=== PATIENT | male | born 1930 | race Caucasian/White ===

== ENCOUNTER 2016-07-07 18:33 | Inpatient (IN) | payer MEDICARE ==
[~2016-07-07] VITALS: Ht 167.6 cm; Wt 66.7 kg
[2016-07-07] MEDS ORDERED: OLANZAPINE 10 MG VIAL IM ONE ×4 (19:15→20:00)
[2016-07-07] MEDS ORDERED: LORAZEPAM 2 MG/1 ML VIAL IM ONE ×2 (19:15→20:45)
[2016-07-07] MEDS ORDERED: LORAZEPAM 2 MG/1 ML VIAL ONE ×2 (19:18→20:52)
[2016-07-07 19:51] LABS: ACETAMINOPHEN < 2.0 ug/mL (10-30)
[2016-07-07] MEDS ORDERED: TAMS0.4C34 PO (19:56)
[2016-07-07] MEDS ORDERED: AMLO5TAB4 PO (19:56)
[2016-07-07] MEDS ORDERED: DOCU250C75 PO (19:56)
[2016-07-07] MEDS ORDERED: DIVA125T3 PO (19:56)
[2016-07-07] MEDS ORDERED: GABA-534 PO (19:56)
[2016-07-07] MEDS ORDERED: ATOR10TA PO (19:56)
[2016-07-07] MEDS ORDERED: FINA5TAB11 PO (19:56)
[2016-07-07] MEDS ORDERED: ZOLP5TAB7 PO (19:56)
[2016-07-07] MEDS ORDERED: POLY17PO3 PO (19:56)
[2016-07-07 19:59] LABS: ETHANOL < 3 MG/DL (0-0)
[2016-07-07] MEDS ORDERED: diphenhydrAMINE 50 MG/1 ML VIAL IM ONE (20:45)
[2016-07-07] MEDS ORDERED: diphenhydrAMINE 50 MG/1 ML VIAL ONE (20:51)
[2016-07-07] MEDS ORDERED: MAGNESIUM HYDROXIDE 30 ML LIQUID UDC PO PRN (23:00)
[2016-07-07] MEDS ORDERED: MAG HYDROX/AL HYDROX/SIMETH 30 ML LIQUID UDC PO PRN (23:00)
[2016-07-07] MEDS ORDERED: MIRALAX 17 GM POWD.PACK PO PRN (23:00)
[2016-07-07 23:54] VITALS: BP 133/76
[2016-07-08] MEDS: ZOLPIDEM 5 MG TABLET PO PRN (00:24)
[2016-07-08] MEDS ORDERED: ZOLPIDEM 5 MG TABLET ONE (00:31)
[2016-07-08 07:30] VITALS: BP 162/81
[2016-07-08 07:59] LABS: BASOPHILS % (AUTO) 0.3 % (0.0-2.0); EOSINOPHILS % (AUTO) 0.2 % (0.0-7.0); HEMATOCRIT 37.4 % (40.0-50.0); HEMOGLOBIN 11.8 g/dL (14.0-18.0); MEAN CORPUSCULAR HEMOGLOBIN 20.6 uug (27.0-31.0); MEAN CORPUSCULAR HGB CONC 32 g/dL (32.0-37.0); MONOCYTES # (AUTO) 1.3 K/uL (0.1-1.30); MONOCYTES % (AUTO) 8.7 % (0.0-11.0); NEUTROPHILS # (AUTO) 12.5 K/uL (1.8-8.9); NEUTROPHILS % (AUTO) 83.8 % (38.5-71.5); PLATELET COUNT (AUTO) 162 K/uL (150-450); RED BLOOD CELL COUNT(AUTO) 5.75 MIL/uL (4.70-6.10); RED CELL DISTRIBUTION WIDTH 14.8 % (11.5-14.5); WHITE BLOOD COUNT (AUTO) 14.8 K/uL (4.0-11.2)
[2016-07-08 08:31] LABS: THYROID STIMULATING HORMONE 3.653 mIU/mL (0.358-3.740)
[2016-07-08] MEDS: LORAZEPAM 1 MG TABLET PO PRN ×2 (08:36→16:40)
[2016-07-08] MEDS: FINASTERIDE 5 MG TABLET PO SCH (08:36)
[2016-07-08] MEDS: AMLODIPINE 5 MG TABLET PO SCH ×2 (08:36→21:00)
[2016-07-08] MEDS: DOCUSATE SODIUM 250 MG CAPSULE PO SCH ×2 (08:37→16:40)
[2016-07-08] MEDS: ACETAMINOPHEN 325 MG TABLET PO PRN ×2 (08:37→16:39)
[2016-07-08 08:43] LABS: BILIRUBIN,TOTAL 1.5 mg/dL (0.2-1.0); CALCIUM 9.2 mg/dL (8.5-10.1); CREATININE 1.5 mg/dL (0.6-1.3); MAGNESIUM 1.9 mg/dL (1.8-2.4); TOTAL PROTEIN, SERUM 7.7 g/dL (6.4-8.2)
[2016-07-08] MEDS ORDERED: GABAPENTIN 300 MG CAPSULE PO SCH (09:00)
[2016-07-08] MEDS: DIVALPROEX SPRINKLE 125 MG CAP.SPRINK PO SCH ×2 (10:15→20:48)
[2016-07-08 15:39] VITALS: BP 120/76
[2016-07-08] MEDS: GABAPENTIN 300 MG CAPSULE PO SCH (16:39)
[2016-07-08] MEDS: QUETIAPINE FUMARATE 25 MG TABLET PO SCH ×2 (16:40→20:47)
[2016-07-08 20:00] VITALS: BP 111/54
[2016-07-08] MEDS: ATORVASTATIN 10 MG TABLET PO SCH (20:48)
[2016-07-08] MEDS: TAMSULOSIN HCL 0.4 MG CAP.SR.24H PO SCH (20:48)
[2016-07-09] MEDS: LORAZEPAM 1 MG TABLET PO PRN ×2 (04:12→16:50)
[2016-07-09 06:58] LABS: BASOPHILS % (AUTO) 0.2 % (0.0-2.0); EOSINOPHILS # (AUTO) 0.1 K/uL (0.0-0.7); EOSINOPHILS % (AUTO) 1.2 % (0.0-7.0); HEMOGLOBIN 11.5 g/dL (14.0-18.0); LYMPHOCYTES # (AUTO) 1.7 K/uL (0.8-4.8); LYMPHOCYTES % (AUTO) 13.5 % (20.5-51.5); MEAN CORPUSCULAR HEMOGLOBIN 20.1 uug (27.0-31.0); MEAN CORPUSCULAR HGB CONC 31 g/dL (32.0-37.0); MEAN CORPUSCULAR VOLUME 64.8 fL (82.0-92.0); MONOCYTES # (AUTO) 1.8 K/uL (0.1-1.30); MONOCYTES % (AUTO) 14.7 % (0.0-11.0); NEUTROPHILS # (AUTO) 8.8 K/uL (1.8-8.9); NEUTROPHILS % (AUTO) 70.4 % (38.5-71.5); PLATELET COUNT (AUTO) 140 K/uL (150-450); RED BLOOD CELL COUNT(AUTO) 5.72 MIL/uL (4.70-6.10); RED CELL DISTRIBUTION WIDTH 14.9 % (11.5-14.5); WHITE BLOOD COUNT (AUTO) 12.4 K/uL (4.0-11.2)
[2016-07-09 07:12] LABS: ALBUMIN 3.5 g/dL (3.4-5.0); BILIRUBIN,TOTAL 1.9 mg/dL (0.2-1.0); CALCIUM 9.2 mg/dL (8.5-10.1); MAGNESIUM 2.1 mg/dL (1.8-2.4); PHOSPHOROUS 4.9 mg/dL (2.5-4.9); POTASSIUM 3.9 mmol/L (3.5-5.1); TOTAL PROTEIN, SERUM 7.3 g/dL (6.4-8.2)
[2016-07-09 07:30] VITALS: BP 135/63
[2016-07-09] MEDS: GABAPENTIN 300 MG CAPSULE PO SCH ×2 (08:13→16:47)
[2016-07-09] MEDS: FINASTERIDE 5 MG TABLET PO SCH (08:14)
[2016-07-09] MEDS: QUETIAPINE FUMARATE 25 MG TABLET PO SCH ×4 (08:14→23:00)
[2016-07-09] MEDS: DIVALPROEX SPRINKLE 125 MG CAP.SPRINK PO SCH ×3 (08:14→23:00)
[2016-07-09] MEDS: DOCUSATE SODIUM 250 MG CAPSULE PO SCH ×2 (08:14→16:47)
[2016-07-09] MEDS: ACETAMINOPHEN 325 MG TABLET PO PRN ×2 (08:16→16:50)
[2016-07-09] MEDS: Z GUARD REMEDY PASTE 57 GM TUBE TOP PRN ×2 (08:55→16:50)
[2016-07-09] MEDS: AMLODIPINE 5 MG TABLET PO SCH ×3 (09:49→23:00)
[2016-07-09 10:33] LABS: EOSINOPHILS % (MANUAL) 1 % (0-8); HYPOCHROMASIA 2+; LYMPHOCYTES % (MANUAL) 10 % (20-40); MONOCYTES % (MANUAL) 11 % (2-10); NEUTROPHILS % (MANUAL) 78 % (42-75); PLATELET ESTIMATE ADEQUATE
[2016-07-09 10:34] LABS: OVALOCYTES 1+; TARGET CELLS 1+
[2016-07-09 16:00] VITALS: BP 105/74
[2016-07-09 20:04] VITALS: BP 115/63
[2016-07-09] MEDS: ATORVASTATIN 10 MG TABLET PO SCH ×2 (21:00→23:00)
[2016-07-09] MEDS: TAMSULOSIN HCL 0.4 MG CAP.SR.24H PO SCH ×2 (21:00→23:00)
[2016-07-10 07:30] VITALS: BP 123/76
[2016-07-10] MEDS: FINASTERIDE 5 MG TABLET PO SCH (09:58)
[2016-07-10] MEDS: GABAPENTIN 300 MG CAPSULE PO SCH (09:58)
[2016-07-10] MEDS: DOCUSATE SODIUM 250 MG CAPSULE PO SCH ×2 (09:58→17:14)
[2016-07-10] MEDS: QUETIAPINE FUMARATE 25 MG TABLET PO SCH ×3 (09:59→21:01)
[2016-07-10] MEDS: DIVALPROEX SPRINKLE 125 MG CAP.SPRINK PO SCH ×2 (09:59→21:01)
[2016-07-10] MEDS: AMLODIPINE 5 MG TABLET PO SCH ×2 (09:59→21:02)
[2016-07-10 16:00] VITALS: BP 126/71
[2016-07-10] MEDS ORDERED: GABAPENTIN 300 MG CAPSULE PO SCH (17:00)
[2016-07-10] MEDS: GABAPENTIN 100 MG CAPSULE PO SCH (17:14)
[2016-07-10] MEDS: LORAZEPAM 1 MG TABLET PO PRN (19:30)
[2016-07-10 20:42] VITALS: BP 128/78
[2016-07-10] MEDS: TAMSULOSIN HCL 0.4 MG CAP.SR.24H PO SCH (21:01)
[2016-07-10] MEDS: ATORVASTATIN 10 MG TABLET PO SCH (21:02)
[2016-07-10] MEDS: ZOLPIDEM 5 MG TABLET PO PRN (23:36)
[2016-07-11 07:30] VITALS: BP 121/65
[2016-07-11 09:08] VITALS: BP 121/65
[2016-07-11] MEDS: DIVALPROEX SPRINKLE 125 MG CAP.SPRINK PO SCH ×2 (09:32→20:01)
[2016-07-11] MEDS: AMLODIPINE 5 MG TABLET PO SCH ×2 (09:32→20:03)
[2016-07-11] MEDS: DOCUSATE SODIUM 250 MG CAPSULE PO SCH ×2 (09:32→16:15)
[2016-07-11] MEDS: GABAPENTIN 100 MG CAPSULE PO SCH ×2 (09:32→16:13)
[2016-07-11] MEDS: QUETIAPINE FUMARATE 25 MG TABLET PO SCH ×2 (09:33→20:12)
[2016-07-11] MEDS: FINASTERIDE 5 MG TABLET PO SCH (09:33)
[2016-07-11] MEDS: LORAZEPAM 1 MG TABLET PO PRN (12:55)
[2016-07-11 15:40] VITALS: BP 138/74
[2016-07-11] MEDS: ATORVASTATIN 10 MG TABLET PO SCH (20:02)
[2016-07-11] MEDS: TAMSULOSIN HCL 0.4 MG CAP.SR.24H PO SCH (20:02)
[2016-07-11 20:29] VITALS: BP 129/75
[2016-07-12] MEDS: ZOLPIDEM 5 MG TABLET PO PRN (00:43)
[2016-07-12] MEDS: ACETAMINOPHEN 325 MG TABLET PO PRN (00:43)
[2016-07-12] MEDS ORDERED: GUAIFENESIN/DEXTROMETHORPHAN 5 ML UDC PO PRN (01:30)
[2016-07-12 07:30] VITALS: BP 145/69
[2016-07-12] MEDS: DOCUSATE SODIUM 250 MG CAPSULE PO SCH (09:52)
[2016-07-12] MEDS: FINASTERIDE 5 MG TABLET PO SCH (09:52)
[2016-07-12] MEDS: GABAPENTIN 100 MG CAPSULE PO SCH ×2 (09:52→17:13)
[2016-07-12] MEDS: DIVALPROEX SPRINKLE 125 MG CAP.SPRINK PO SCH ×2 (09:52→20:38)
[2016-07-12] MEDS: AMLODIPINE 5 MG TABLET PO SCH ×2 (09:59→20:39)
[2016-07-12] MEDS: LORAZEPAM 1 MG TABLET PO PRN ×2 (11:17→16:11)
[2016-07-12] MEDS ORDERED: BISACODYL 10 MG SUPP.RECT RC PRN (13:45)
[2016-07-12] MEDS: MIRALAX 17 GM POWD.PACK PO SCH (15:00)
[2016-07-12 15:06] LABS: BASOPHILS # (AUTO) 0.1 K/uL (0.0-0.2); EOSINOPHILS # (AUTO) 0.3 K/uL (0.0-0.7); EOSINOPHILS % (AUTO) 3.4 % (0.0-7.0); HEMOGLOBIN 9.9 g/dL (14.0-18.0); LYMPHOCYTES # (AUTO) 0.9 K/uL (0.8-4.8); LYMPHOCYTES % (AUTO) 11.3 % (20.5-51.5); MEAN CORPUSCULAR HEMOGLOBIN 19.9 uug (27.0-31.0); MEAN CORPUSCULAR HGB CONC 31 g/dL (32.0-37.0); MEAN CORPUSCULAR VOLUME 64.3 fL (82.0-92.0); MONOCYTES # (AUTO) 1.2 K/uL (0.1-1.30); MONOCYTES % (AUTO) 14.4 % (0.0-11.0); NEUTROPHILS # (AUTO) 5.8 K/uL (1.8-8.9); NEUTROPHILS % (AUTO) 69.9 % (38.5-71.5); PLATELET COUNT (AUTO) 131 K/uL (150-450); RED BLOOD CELL COUNT(AUTO) 4.97 MIL/uL (4.70-6.10); RED CELL DISTRIBUTION WIDTH 14.4 % (11.5-14.5); WHITE BLOOD COUNT (AUTO) 8.3 K/uL (4.0-11.2)
[2016-07-12] MEDS ORDERED: FLEET ENEMA 133 ML BOTTLE RC PRN (15:15)
[2016-07-12 15:16] VITALS: BP 153/72
[2016-07-12 15:16] LABS: MAGNESIUM 2.4 mg/dL (1.8-2.4); PHOSPHOROUS 6.5 mg/dL (2.5-4.9)
[2016-07-12 15:43] LABS: NEUTROPHILS % (MANUAL) 60 % (42-75)
[2016-07-12 15:44] LABS: ANISOCYTOSIS 1+; EOSINOPHILS % (MANUAL) 4 % (0-8); HYPOCHROMASIA 1+; LYMPHOCYTES % (MANUAL) 15 % (20-40); MONOCYTES % (MANUAL) 21 % (2-10); PLATELET ESTIMATE DECREASED
[2016-07-12 15:45] LABS: TARGET CELLS FEW; TEAR DROP CELLS FEW
[2016-07-12] MEDS: QUETIAPINE FUMARATE 25 MG TABLET PO SCH ×2 (17:13→20:38)
[2016-07-12 18:06] LABS: *BILIRUBIN,URIN NEGATIVE (NEGATIVE); *BLOOD, URINE 3+ (NEGATIVE); *CLARITY,URINE SLIGHTLY CLOUDY (CLEAR); *COLOR,URINE YELLOW (YELLOW); *CREATININE,URINE 151.3 mg/dL (30-125); *KETONES,URINE NEGATIVE (NEGATIVE); *PROTEIN,URINE NEGATIVE (NEGATIVE); *URINE TOTAL PROTEIN RANDOM 15.8 mg/dL (<150/24HR); *UROBILINOGEN,URINE 0.2 E.U./dl (NORMAL); LEUKOCYTE ESTERASE ,URINE NEGATIVE (NEGATIVE); NITRITE, URINE NEGATIVE (NEGATIVE); PH,URINE 5.5 (5.0-8.0); UGLUCOSE NEGATIVE (NEGATIVE)
[2016-07-12 18:21] LABS: BACTERIA,URINE NONE SEEN /HPF (NONE SEEN); RBC,URINE 80-100 /HPF (0-3); SQUAMOUS EPITHELIAL CELL,UR NONE SEEN /HPF (NONE SEEN); WBC,URINE 0-3 /HPF (0-3)
[2016-07-12 18:52] LABS: *OCCULT BLOOD STOOL NEGATIVE (NEGATIVE)
[2016-07-12 20:34] VITALS: BP 171/78
[2016-07-12] MEDS: ATORVASTATIN 10 MG TABLET PO SCH (20:38)
[2016-07-12] MEDS: TAMSULOSIN HCL 0.4 MG CAP.SR.24H PO SCH (20:39)
[2016-07-12] MEDS ORDERED: DOCUSATE SODIUM 100 MG CAPSULE PO SCH (21:00)
[2016-07-13 08:11] LABS: ALBUMIN 3.1 g/dL (3.4-5.0); BILIRUBIN,TOTAL 0.8 mg/dL (0.2-1.0); CALCIUM 8.4 mg/dL (8.5-10.1); MAGNESIUM 2.3 mg/dL (1.8-2.4); PHOSPHOROUS 7.7 mg/dL (2.5-4.9); POTASSIUM 4.3 mmol/L (3.5-5.1); TOTAL PROTEIN, SERUM 7.3 g/dL (6.4-8.2)
[2016-07-13 08:12] LABS: BASOPHILS % (AUTO) 0.2 % (0.0-2.0); CREATININE 4.5 mg/dL (0.6-1.3); EOSINOPHILS # (AUTO) 0.2 K/uL (0.0-0.7); EOSINOPHILS % (AUTO) 1.7 % (0.0-7.0); HEMATOCRIT 32.3 % (40.0-50.0); HEMOGLOBIN 9.9 g/dL (14.0-18.0); LYMPHOCYTES # (AUTO) 1.2 K/uL (0.8-4.8); LYMPHOCYTES % (AUTO) 10.8 % (20.5-51.5); MEAN CORPUSCULAR HGB CONC 31 g/dL (32.0-37.0); MONOCYTES # (AUTO) 1.9 K/uL (0.1-1.30); MONOCYTES % (AUTO) 16.8 % (0.0-11.0); NEUTROPHILS # (AUTO) 7.7 K/uL (1.8-8.9); NEUTROPHILS % (AUTO) 70.5 % (38.5-71.5); PLATELET COUNT (AUTO) 130 K/uL (150-450); RED BLOOD CELL COUNT(AUTO) 4.97 MIL/uL (4.70-6.10)
[2016-07-13] MEDS: DIVALPROEX SPRINKLE 125 MG CAP.SPRINK PO SCH (09:11)
[2016-07-13] MEDS: QUETIAPINE FUMARATE 25 MG TABLET PO SCH (09:11)
[2016-07-13] MEDS: FINASTERIDE 5 MG TABLET PO SCH (09:11)
[2016-07-13] MEDS: GABAPENTIN 100 MG CAPSULE PO SCH (09:11)
[2016-07-13] MEDS: AMLODIPINE 5 MG TABLET PO SCH (09:11)
[2016-07-13] MEDS: MIRALAX 17 GM POWD.PACK PO SCH (09:11)
[2016-07-13] MEDS ORDERED: IV D5 1/2 NS 1000 ML 1,000 ML IV PRN (10:00)
[2016-07-13 10:53] VITALS: BP 129/75
[2016-07-13 13:15] LABS: BAND % (MANUAL) 6 % (0-10); EOSINOPHILS % (MANUAL) 3 % (0-8); LYMPHOCYTES % (MANUAL) 14 % (20-40); NEUTROPHILS % (MANUAL) 61 % (42-75)
[2016-07-13 13:16] LABS: MONOCYTES % (MANUAL) 16 % (2-10); PLATELET ESTIMATE DECREASED
[2016-07-13 13:18] LABS: ANISOCYTOSIS 1+; HYPOCHROMASIA 3+; TARGET CELLS 11; TEAR DROP CELLS 1+
[2016-07-13] MEDS ORDERED: FERROUS SULFATE 325 MG TABEC PO SCH (13:45)
[2016-07-13] MEDS ORDERED: FERROUS SULFATE 300 MG/5 ML LIQUID UDC PO SCH ×2 (14:30→14:41)
[2016-07-13] MEDS: ACETAMINOPHEN 325 MG TABLET PO PRN (15:22)
[2016-07-13] MEDS: LORAZEPAM 1 MG TABLET PO PRN (15:22)
[2016-07-13 15:47] VITALS: BP 100/63
[2016-07-13] MEDS ORDERED: FERR325T28 PO (17:34)
[2016-07-13] MEDS ORDERED: GUAI480S10 PO (17:34)
[2016-07-13] MEDS ORDERED: LORA-259 PO (17:35)
[2016-07-13] MEDS ORDERED: MAG355OR18 PO (17:37)
[2016-07-13] MEDS ORDERED: QUET100T PO (17:39)
[2016-07-13] MEDS ORDERED: QUET25TA PO (17:40)
[2016-07-13] MEDS ORDERED: BISA10SU61 RC (17:49)
[2016-07-13] MEDS ORDERED: ZINC113P2 TP (17:49)
[2016-07-15 06:06] LABS: A/G RATIO 1.3 (0.7-1.7); ALBUMIN 3.8 g/dL (2.9-4.4); ALPHA-1-GLOBULIN 0.3 g/dL (0.0-0.4); ALPHA-2-GLOBULIN 0.7 g/dL (0.4-1.0); BETA GLOBULIN 0.8 g/dL (0.7-1.3); GAMMA GLOBULIN 1.3 g/dL (0.4-1.8); M-SPIKE Not Observed g/dL (Not Observed)
[2016-07-15 13:43] LABS: PTH, INTACT 47 pg/mL (15-65)
== END 2016-07-13 15:30 | disposition short-term general hospital (02) | DRG 885 ==
LOC: ER 18:33 → GPS 22:44 → MED 07-13 16:08 → GPS 07-13 16:08
PROVIDERS: ADMIT Psychiatry & Neurology Psychiatry; ATTEND Nurse Practitioner Acute Care
DX: F29 Unspecified psychosis not due to a substance or known physiological condition (principal); F02.81 Dementia in other diseases classified elsewhere, unspecified severity, with behavioral disturbance; N17.0 Acute kidney failure with tubular necrosis; D68.59 Other primary thrombophilia; E87.0 Hyperosmolality and hypernatremia; G30.9 Alzheimer's disease, unspecified; E78.00 Pure hypercholesterolemia, unspecified; D50.9 Iron deficiency anemia, unspecified; E78.5 Hyperlipidemia, unspecified; E86.0 Dehydration; D69.6 Thrombocytopenia, unspecified; K59.00 Constipation, unspecified; E80.6 Other disorders of bilirubin metabolism; I10 Essential (primary) hypertension; D72.829 Elevated white blood cell count, unspecified; N40.0 Benign prostatic hyperplasia without lower urinary tract symptoms; E11.9 Type 2 diabetes mellitus without complications; R33.8 Other retention of urine; R14.0 Abdominal distension (gaseous); R93.5 Abnormal findings on diagnostic imaging of other abdominal regions, including retroperitoneum; N13.9 Obstructive and reflux uropathy, unspecified; R31.9 Hematuria, unspecified
CPT/HCPCS: 36415; 70450; 71010; 74000; 76770; 80164; 82378; 83550; 83735; 83970; 84100; 84153; 84155; 84156; 84165; 84300; 84443; 85025; 97001; 97110; 97530; A4663; G0480-TC; G6040-TC; J1200; J2060; J2358; J3490

== ENCOUNTER 2016-07-13 16:23 | Inpatient (IN) | payer MEDICARE ==
[~2016-07-13] VITALS: Ht 167.6 cm; Wt 66.7 kg
[2016-07-13 15:00] VITALS: BP 139/67
[~2016-07-13 16:23] MED LIST: AMLO5TAB4 PO; ATOR10TA PO; DIVA125T3 PO; DOCU250C75 PO; FINA5TAB11 PO; GABA-534 PO; POLY17PO3 PO; TAMS0.4C34 PO; ZOLP5TAB7 PO
[2016-07-13] MEDS ORDERED: GUAI480S10 PO (17:34)
[2016-07-13] MEDS ORDERED: FERR325T28 PO (17:34)
[2016-07-13] MEDS ORDERED: LORA-259 PO (17:35)
[2016-07-13] MEDS ORDERED: MAG355OR18 PO (17:37)
[2016-07-13] MEDS ORDERED: QUET100T PO (17:39)
[2016-07-13] MEDS ORDERED: QUET25TA PO (17:40)
[2016-07-13] MEDS ORDERED: BISA10SU61 RC (17:49)
[2016-07-13] MEDS ORDERED: ZINC113P2 TP (17:49)
--- NOTE | 2016-07-13 18:00 | NUR ---
Entered home medications for Jazz to reconcile meds. Pt is in no acute distress. Noted Bruising on right elbow, left and right hand bruising, right spencer scabs, and Left knee scabs. Pt very combative and attempting to pull out f/c and IV on right hand, Pt attempting to get oob. Decreased environmental stimulit and attempt to distract pt both not effective. Pt wont take anything by mouth during feeds. Awaiting for jazz to change ativan to IV. Call light is within reach.
[2016-07-13] MEDS: IV D5 1/2 NS 1000 ML 1,000 ML IV PRN (18:45)
[2016-07-13] MEDS: LORAZEPAM 2 MG/1 ML VIAL IV PRN (18:45)
[2016-07-13 18:57] LABS: *BILIRUBIN,URIN NEGATIVE (NEGATIVE); *BLOOD, URINE 3+ (NEGATIVE); *CLARITY,URINE CLOUDY (CLEAR); *COLOR,URINE RED (YELLOW); *KETONES,URINE TRACE (NEGATIVE); *PROTEIN,URINE 2+ (NEGATIVE); NITRITE, URINE NEGATIVE (NEGATIVE); PH,URINE 6.5 (5.0-8.0); UGLUCOSE NEGATIVE (NEGATIVE)
[2016-07-13 18:58] LABS: LEUKOCYTE ESTERASE ,URINE TRACE (NEGATIVE)
[2016-07-13 19:15] LABS: RBC,URINE TNTC /HPF (0-3)
[2016-07-13 19:16] LABS: BACTERIA,URINE NONE SEEN /HPF (NONE SEEN); SQUAMOUS EPITHELIAL CELL,UR NONE SEEN /HPF (NONE SEEN)
--- NOTE | 2016-07-13 19:30 | NUR ---
received pt in bed sleeping, easily awaken. in no acute distress. 1:1 sitter at bedside for safety. brambila intact and patent draining pink-red urine. iv intact ivf infusing as ordered. safety measures are in place. will continue to monitor.
[2016-07-13 20:00] VITALS: BP 128/68
[2016-07-13] MEDS ORDERED: MAG HYDROX/AL HYDROX/SIMETH 30 ML LIQUID UDC PO PRN (21:00)
[2016-07-13] MEDS ORDERED: GUAIFENESIN/DEXTROMETHORPHAN 5 ML UDC PO PRN (21:00)
[2016-07-13] MEDS ORDERED: ZOLPIDEM 5 MG TABLET PO PRN (21:00)
[2016-07-13] MEDS ORDERED: QUETIAPINE FUMARATE 25 MG TABLET ONE (21:11)
[2016-07-13] MEDS ORDERED: ATORVASTATIN 10 MG TABLET ONE (21:12)
[2016-07-13] MEDS: ATORVASTATIN 10 MG TABLET PO SCH (21:21)
[2016-07-13] MEDS: QUETIAPINE FUMARATE 100 MG TABLET PO SCH (21:26)
[2016-07-13] MEDS ORDERED: QUETIAPINE FUMARATE 100 MG TABLET ONE (21:33)
[2016-07-14] MEDS: LORAZEPAM 2 MG/1 ML VIAL IV PRN ×3 (03:08→18:04)
--- NOTE | 2016-07-14 03:21 | NUR ---
pt noted to be anxious restless and combative, pulling out brambila catheter and trying to get oob. reoriented and attempted to distract pt. prn medication given as ordered. will continue to monitor.
[2016-07-14 04:00] VITALS: BP 131/66
--- NOTE | 2016-07-14 06:00 | NUR ---
1:1 sitter at bedside at all times for safety. brambila remains intact and patent hematuria noted. resting comfortably in bed in no acute distress.
[2016-07-14] MEDS: IV D5 1/2 NS 1000 ML 1,000 ML IV PRN ×2 (06:03→20:49)
[2016-07-14 06:47] LABS: ALBUMIN 3.1 g/dL (3.4-5.0); BILIRUBIN,TOTAL 0.8 mg/dL (0.2-1.0); CALCIUM 8.5 mg/dL (8.5-10.1); MAGNESIUM 2.1 mg/dL (1.8-2.4); PHOSPHOROUS 3.4 mg/dL (2.5-4.9); POTASSIUM 4.3 mmol/L (3.5-5.1); TOTAL PROTEIN, SERUM 7.5 g/dL (6.4-8.2)
[2016-07-14 06:48] LABS: BASOPHILS % (AUTO) 0.5 % (0.0-2.0); EOSINOPHILS # (AUTO) 0.3 K/uL (0.0-0.7); EOSINOPHILS % (AUTO) 2.8 % (0.0-7.0); HEMATOCRIT 30.6 % (40.0-50.0); HEMOGLOBIN 9.7 g/dL (14.0-18.0); LYMPHOCYTES % (AUTO) 10.1 % (20.5-51.5); MEAN CORPUSCULAR HEMOGLOBIN 20.5 uug (27.0-31.0); MEAN CORPUSCULAR HGB CONC 32 g/dL (32.0-37.0); MEAN CORPUSCULAR VOLUME 64.7 fL (82.0-92.0); MONOCYTES # (AUTO) 1.5 K/uL (0.1-1.30); MONOCYTES % (AUTO) 15.2 % (0.0-11.0); NEUTROPHILS # (AUTO) 6.9 K/uL (1.8-8.9); NEUTROPHILS % (AUTO) 71.4 % (38.5-71.5); PLATELET COUNT (AUTO) 143 K/uL (150-450); RED BLOOD CELL COUNT(AUTO) 4.73 MIL/uL (4.70-6.10); RED CELL DISTRIBUTION WIDTH 14.2 % (11.5-14.5); WHITE BLOOD COUNT (AUTO) 9.8 K/uL (4.0-11.2)
[2016-07-14 06:51] LABS: CREATININE 1.9 mg/dL (0.6-1.3)
[2016-07-14] MEDS: FERROUS SULFATE 300 MG/5 ML LIQUID UDC PO SCH (07:54)
[2016-07-14] MEDS: DIVALPROEX 250 MG TABLET.DR PO SCH (07:54)
[2016-07-14] MEDS: QUETIAPINE FUMARATE 25 MG TABLET PO SCH ×2 (07:55→17:38)
[2016-07-14] MEDS: GABAPENTIN 100 MG CAPSULE PO SCH ×2 (07:55→17:39)
[2016-07-14] MEDS: FINASTERIDE 5 MG TABLET PO SCH (07:55)
[2016-07-14] MEDS: AMLODIPINE 5 MG TABLET PO SCH ×2 (07:56→17:38)
[2016-07-14] MEDS: PANTOPRAZOLE SODIUM 40 MG TABLET.DR PO SCH (07:57)
--- NOTE | 2016-07-14 08:00 | NUR ---
PATIENT CONTINUES TO HAVE HEMATURIA. PATIENT HAS SITTER AT BEDSIDE FOR SAFETY TO ENSURE HE DOES NOT PULL OUT IV LINE OR SERRANO CATHETER. PATIENT CONTINUES TO BE CONFUSED. HOWEVER TAKES MEDICATION.
[2016-07-14] MEDS ORDERED: DIVALPROEX 125 MG TABLET.DR PO SCH (09:00)
[2016-07-14] MEDS ORDERED: GABAPENTIN 300 MG CAPSULE PO SCH (09:00)
[2016-07-14 09:58] LABS: BAND % (MANUAL) 2 % (0-10); EOSINOPHILS % (MANUAL) 5 % (0-8); LYMPHOCYTES % (MANUAL) 17 % (20-40); NEUTROPHILS % (MANUAL) 64 % (42-75)
[2016-07-14 10:00] LABS: MONOCYTES % (MANUAL) 12 % (2-10)
[2016-07-14 10:02] LABS: PLATELET ESTIMATE DECREASED
[2016-07-14 10:03] LABS: ANISOCYTOSIS 1+; HYPOCHROMASIA 2+; TARGET CELLS 1+; TEAR DROP CELLS 1+
--- NOTE | 2016-07-14 10:49 | NUR ---
CLINICAL PHARMACY NOTE(REVIEW OF [facility] MEDICATIONS) This is an 85 y/o male originally admitted to the Geropsychiatric unit due to psychosis with aggression/agitation. Has been transfer to the medical floor when blood was found in his urine. Past medical history Alzheimer's dementia hypertension, hypercholesterolemia All medications review as of today several mediations on high risk list. Quetiapine increased risk of cerebrovascular accident (stroke) and greater rate of cognitive decline and mortality in persons with dementia. Zolpidem,Lorazepam, Depakote, and gabapentin all may cause ataxia, impaired psychomotor function syncope, additional fall risk. Lorazepam ordered iv prn agitation. Zolpidem as needed for sleep. Quetiapine,Depakote,and gabapentin were continue from medication reconciliation form Geropsychiatric unit originally ordered by psychiatrist. Original lorazepam order was PO from psychiatrist. Recommendation: Patient dose have quetiapine ordered for bedtime and if effective may be able to discontinue zolpidem. Otherwise due to the patient complex behavioral problems (dementia/psychosis) no other recommendations except for monitoring the patient for side effects such as impaired psychomotor function and ataxia. In addition quetiapine may interact with other medication causing prolongation of QT interval. Will monitor for any changes in medications that may interact with quetiapine.
[2016-07-14 11:50] VITALS: BP 123/66
[2016-07-14 15:54] VITALS: BP 125/56
[2016-07-14 16:09] LABS: THYROID STIMULATING HORMONE 1.93 mIU/mL (0.358-3.740)
--- NOTE | 2016-07-14 19:30 | NUR ---
IV intact, infusing well. Bustamante intact, continues to have hematuria. Will continue to monitor.
--- NOTE | 2016-07-14 19:30 | NUR ---
Received patient sleeping in bed, 1:1 sitter at bedside. No s/s distress noted. Call light within reach. Will continue to monitor.
[2016-07-14 20:00] VITALS: BP 120/68
[2016-07-14] MEDS: TAMSULOSIN HCL 0.4 MG CAP.SR.24H PO SCH (20:44)
[2016-07-14] MEDS: QUETIAPINE FUMARATE 100 MG TABLET PO SCH (20:44)
[2016-07-14] MEDS: ATORVASTATIN 10 MG TABLET PO SCH (20:44)
[2016-07-15] MEDS: LORAZEPAM 2 MG/1 ML VIAL IV PRN ×2 (03:37→11:37)
[2016-07-15 04:00] VITALS: BP 130/60
[2016-07-15] MEDS: PANTOPRAZOLE SODIUM 40 MG TABLET.DR PO SCH (06:18)
--- NOTE | 2016-07-15 06:55 | NUR ---
Patient resting in bed. Kept clean and dry. IV on left hand #20. IVF infusing well. With intermittent periods of agitation. PRN and due meds given. Call light within reach. Frequent checks done, sitter at bedside. Bustamante in place. Will endorse accordingly.
--- NOTE | 2016-07-15 07:12 | NUR ---
Report received from mini shifter. Patient resting in bed, no signs of distress noted at this time. Intermittent signs of agitation, decreased at this time due to prior administration of ativan as ordered. IVF running, no redness or swelling at IV site. Bustamante in place, draining red urine. Call light within reach. Sitter at bedside, will continue to monitor and check frequently. Safety, fall, and aspiration precautions maintained. Four siderails up.
[2016-07-15 07:41] LABS: BASOPHILS % (AUTO) 0.4 % (0.0-2.0); EOSINOPHILS # (AUTO) 0.3 K/uL (0.0-0.7); EOSINOPHILS % (AUTO) 2.6 % (0.0-7.0); HEMATOCRIT 28.4 % (40.0-50.0); HEMOGLOBIN 8.9 g/dL (14.0-18.0); LYMPHOCYTES # (AUTO) 1.3 K/uL (0.8-4.8); LYMPHOCYTES % (AUTO) 13.1 % (20.5-51.5); MEAN CORPUSCULAR HEMOGLOBIN 20.5 uug (27.0-31.0); MEAN CORPUSCULAR HGB CONC 31 g/dL (32.0-37.0); MEAN CORPUSCULAR VOLUME 65.4 fL (82.0-92.0); MONOCYTES # (AUTO) 1.7 K/uL (0.1-1.30); MONOCYTES % (AUTO) 17.7 % (0.0-11.0); NEUTROPHILS # (AUTO) 6.4 K/uL (1.8-8.9); NEUTROPHILS % (AUTO) 66.2 % (38.5-71.5); PLATELET COUNT (AUTO) 166 K/uL (150-450); RED BLOOD CELL COUNT(AUTO) 4.34 MIL/uL (4.70-6.10); RED CELL DISTRIBUTION WIDTH 13.8 % (11.5-14.5); WHITE BLOOD COUNT (AUTO) 9.8 K/uL (4.0-11.2)
[2016-07-15 07:55] LABS: ALBUMIN 2.9 g/dL (3.4-5.0); BILIRUBIN,TOTAL 0.6 mg/dL (0.2-1.0); CREATININE 1.3 mg/dL (0.6-1.3); MAGNESIUM 1.9 mg/dL (1.8-2.4); PHOSPHOROUS 2.3 mg/dL (2.5-4.9); TOTAL PROTEIN, SERUM 7.3 g/dL (6.4-8.2)
[2016-07-15 08:17] LABS: CALCIUM 7.8 mg/dL (8.5-10.1)
[2016-07-15] MEDS: FERROUS SULFATE 300 MG/5 ML LIQUID UDC PO SCH (08:26)
[2016-07-15] MEDS: QUETIAPINE FUMARATE 25 MG TABLET PO SCH ×2 (08:27→17:34)
[2016-07-15] MEDS: AMLODIPINE 5 MG TABLET PO SCH ×2 (08:27→17:34)
[2016-07-15] MEDS: DIVALPROEX 250 MG TABLET.DR PO SCH (08:27)
[2016-07-15] MEDS: GABAPENTIN 100 MG CAPSULE PO SCH ×2 (08:27→17:34)
[2016-07-15 08:29] LABS: EOSINOPHILS % (MANUAL) 4 % (0-8); HYPOCHROMASIA 2+; LYMPHOCYTES % (MANUAL) 12 % (20-40); MONOCYTES % (MANUAL) 17 % (2-10); NEUTROPHILS % (MANUAL) 67 % (42-75); PLATELET ESTIMATE ADEQUATE
[2016-07-15] MEDS: FINASTERIDE 5 MG TABLET PO SCH (09:10)
[2016-07-15 11:19] VITALS: BP 133/83
[2016-07-15] MEDS: IV D5 1/2 NS 1000 ML 1,000 ML IV PRN (11:35)
--- NOTE | 2016-07-15 11:45 | NUR ---
Pt has increased agitation. multiple steps prior to giving ativan not effective. decreased stimuli, distracted pt, pt with sitter at bedside for any needs of pt but pt still agitated pulling on iv pulling on f/c kicking sitter, and spitting on nurses. Ativan given for agitation.
--- NOTE | 2016-07-15 13:00 | NUR ---
f/c irrigated as ordered. and mad very minimal clots taken out. Urine is dark rosales colored. D/c f/c as ordered. emptied 850cc of urine from the f/c. Pt is in no acute distress. Call light is within reach.
--- NOTE | 2016-07-15 14:00 | NUR ---
Ativan minimally effective - pt is more manageable with the sitter at the bedside. Resp 18, b/p 135/69, temp 98.7
[2016-07-15] MEDS ORDERED: SENNOSIDES/DOCUSATE SODIUM TABLET PO PRN (14:45)
[2016-07-15] MEDS ORDERED: NEUTRA PHOS PACKET PO ONE (15:15)
[2016-07-15 15:30] VITALS: BP 136/75
[2016-07-15] MEDS ORDERED: FLEET ENEMA 133 ML BOTTLE RC PRN (15:30)
[2016-07-15] MEDS ORDERED: BISACODYL 10 MG SUPP.RECT RC PRN (15:30)
--- NOTE | 2016-07-15 18:32 | NUR ---
Pt is in no acute distress. Pt had small urine output form the diaper. pt is incontinent. CHECKED urine with bladder scanner resulted 260cc. Dr mckeon notified. Next shift to monitor bladder in urine. No result from suppository for constipation -will notify next shift to try fleets enema. Pt had been restless throughout shift with frequent moving around in bed and minimal sleep and rest. Call light is within reach.
[2016-07-15 20:00] VITALS: BP 145/79
[2016-07-15] MEDS: TAMSULOSIN HCL 0.4 MG CAP.SR.24H PO SCH (20:36)
[2016-07-15] MEDS: QUETIAPINE FUMARATE 100 MG TABLET PO SCH (20:36)
[2016-07-15] MEDS: ATORVASTATIN 10 MG TABLET PO SCH (20:36)
--- NOTE | 2016-07-15 20:55 | NUR ---
Patient noted to have no urine in diaper. Checked with bladder scanner and noted [address] Cueto made aware. Awaiting call back.
--- NOTE | 2016-07-15 21:20 | NUR ---
Dr. Cueto called back with orders to insert brambila if retaining by midnight.
--- NOTE | 2016-07-16 00:10 | NUR ---
No urine noted on diaper. Bladder scan done and noted 628ml retention. Inserted brambila cath as ordered.
[2016-07-16] MEDS: IV D5 1/2 NS 1000 ML 1,000 ML IV PRN (02:19)
[2016-07-16] MEDS: LORAZEPAM 2 MG/1 ML VIAL IV PRN ×2 (03:35→14:37)
[2016-07-16 04:00] VITALS: BP 117/71
[2016-07-16] MEDS: PANTOPRAZOLE SODIUM 40 MG TABLET.DR PO SCH (06:34)
[2016-07-16 06:46] LABS: BASOPHILS % (AUTO) 0.4 % (0.0-2.0); EOSINOPHILS # (AUTO) 0.2 K/uL (0.0-0.7); EOSINOPHILS % (AUTO) 2.3 % (0.0-7.0); HEMOGLOBIN 9.7 g/dL (14.0-18.0); LYMPHOCYTES # (AUTO) 1.1 K/uL (0.8-4.8); LYMPHOCYTES % (AUTO) 11.4 % (20.5-51.5); MEAN CORPUSCULAR HEMOGLOBIN 20.9 uug (27.0-31.0); MEAN CORPUSCULAR HGB CONC 32 g/dL (32.0-37.0); MEAN CORPUSCULAR VOLUME 64.5 fL (82.0-92.0); MONOCYTES # (AUTO) 1.7 K/uL (0.1-1.30); MONOCYTES % (AUTO) 17.4 % (0.0-11.0); NEUTROPHILS % (AUTO) 68.5 % (38.5-71.5); PLATELET COUNT (AUTO) 166 K/uL (150-450); RED BLOOD CELL COUNT(AUTO) 4.65 MIL/uL (4.70-6.10)
--- NOTE | 2016-07-16 06:49 | NUR ---
Patient resting on bed with periods of agitation. Lorazepam given as ordered. Slept for a few hours throughout the night. BM x 4 during the shift. Due meds given. IV intact and patent. IVF infusing well. Bustamante cath patent. Kept clean, dry and comfortable. Needs attended. Endorsed accordingly.
[2016-07-16 07:05] LABS: BILIRUBIN,TOTAL 0.9 mg/dL (0.2-1.0); CALCIUM 8.5 mg/dL (8.5-10.1); CREATININE 1.2 mg/dL (0.6-1.3); MAGNESIUM 1.9 mg/dL (1.8-2.4); PHOSPHOROUS 3.3 mg/dL (2.5-4.9); POTASSIUM 3.8 mmol/L (3.5-5.1); TOTAL PROTEIN, SERUM 7.5 g/dL (6.4-8.2)
[2016-07-16 08:00] VITALS: BP 123/79
[2016-07-16] MEDS: FERROUS SULFATE 300 MG/5 ML LIQUID UDC PO SCH (08:09)
[2016-07-16] MEDS: QUETIAPINE FUMARATE 25 MG TABLET PO SCH ×2 (08:10→16:02)
[2016-07-16] MEDS: GABAPENTIN 100 MG CAPSULE PO SCH ×2 (08:10→16:02)
[2016-07-16] MEDS: DIVALPROEX 250 MG TABLET.DR PO SCH (08:10)
[2016-07-16] MEDS: AMLODIPINE 5 MG TABLET PO SCH ×2 (08:14→16:03)
[2016-07-16] MEDS: FINASTERIDE 5 MG TABLET PO SCH (08:14)
[2016-07-16 11:09] VITALS: BP 125/73
[2016-07-16 11:11] VITALS: BP 125/73
[2016-07-16 11:35] LABS: BAND % (MANUAL) 4 % (0-10); EOSINOPHILS % (MANUAL) 4 % (0-8); LYMPHOCYTES % (MANUAL) 11 % (20-40); MONOCYTES % (MANUAL) 18 % (2-10); NEUTROPHILS % (MANUAL) 63 % (42-75)
[2016-07-16 11:36] LABS: HYPOCHROMASIA 2+; PLATELET ESTIMATE ADEQUATE
--- NOTE | 2016-07-16 13:49 | NUR ---
PT AWAKE AND RESTLESS, ROLLING AROUND IN BED AND TRYING TO GET OUT OF BED, SITTER AT BEDSIDE MAKING SURE PT REMAINS SAFE AND IV AND SERRANO REMAIN INTACT. PT NOT YELLING OR COMBATIVE AT THIS TIME, WILL CONTINUE TO MONITOR
--- NOTE | 2016-07-16 14:49 | NUR ---
ATIVAN GIVE PER ORDERS. PT CONTINUING TO TRY AND PULL OUT IV LINE AND SERRANO CATHETER. IS NOW YELLING AT SITTER AND BECOMING VERY AGITATED
[2016-07-16 15:04] VITALS: BP 129/74
[2016-07-16 20:00] VITALS: BP 140/74
[2016-07-16] MEDS: TAMSULOSIN HCL 0.4 MG CAP.SR.24H PO SCH (20:13)
[2016-07-16] MEDS: ATORVASTATIN 10 MG TABLET PO SCH (20:14)
[2016-07-16] MEDS: QUETIAPINE FUMARATE 100 MG TABLET PO SCH (20:14)
--- NOTE | 2016-07-16 20:34 | NUR ---
pt eyes closed, half asleep, but responds when his name is called. all night meds given, iv d/cd and removed peripheral line, was wrapped with kerlix and noted slight infiltration of iv fluid.pressure dressing placed.. will be transfer to [facility]. will give report.
[2016-07-17] MEDS ORDERED: BOOST GLUCOSE CONTROL 237 ML LIQUID (VANILLA) PO SCH (10:00)
[2016-07-17] MEDS ORDERED: NUT.237L70 PO (12:27)
[2016-07-17] MEDS ORDERED: PANT40TA2 PO (12:28)
[2016-07-17] MEDS ORDERED: SENN-22 PO (12:29)
[2016-07-17] MEDS ORDERED: NA P133E RC (12:30)
== END 2016-07-16 21:15 | DRG 682 ==
LOC: MED 16:23 → TELE 07-14 09:30 → MED 07-14 13:55
PROVIDERS: ADMIT Nurse Practitioner Acute Care; ATTEND Internal Medicine
DX: N17.0 Acute kidney failure with tubular necrosis (principal); G93.40 Encephalopathy, unspecified; F02.81 Dementia in other diseases classified elsewhere, unspecified severity, with behavioral disturbance; D68.59 Other primary thrombophilia; N39.0 Urinary tract infection, site not specified; E44.0 Moderate protein-calorie malnutrition; E87.0 Hyperosmolality and hypernatremia; K56.7 Ileus, unspecified; J98.11 Atelectasis; N40.1 Benign prostatic hyperplasia with lower urinary tract symptoms; R33.8 Other retention of urine; Z66 Do not resuscitate; M47.9 Spondylosis, unspecified; Z90.49 Acquired absence of other specified parts of digestive tract; G30.9 Alzheimer's disease, unspecified; J84.10 Pulmonary fibrosis, unspecified; Z74.09 Other reduced mobility; Z68.23 Body mass index [BMI] 23.0-23.9, adult; E87.5 Hyperkalemia; Z80.1 Family history of malignant neoplasm of trachea, bronchus and lung; Z80.0 Family history of malignant neoplasm of digestive organs; Z87.891 Personal history of nicotine dependence; R26.81 Unsteadiness on feet; I11.9 Hypertensive heart disease without heart failure; I51.7 Cardiomegaly; R31.9 Hematuria, unspecified; F06.8 Other specified mental disorders due to known physiological condition; E11.65 Type 2 diabetes mellitus with hyperglycemia; D69.6 Thrombocytopenia, unspecified; D50.0 Iron deficiency anemia secondary to blood loss (chronic); Z79.899 Other long term (current) drug therapy; Z63.8 Other specified problems related to primary support group; E83.39 Other disorders of phosphorus metabolism; E78.5 Hyperlipidemia, unspecified; D56.3 Thalassemia minor
CPT/HCPCS: 36415; 70450; 71010; 74000; 83735; 84100; 84443; 85025; 87086; 92506; 93005; 97001; 97003; A4217; J2060; J3490

== ENCOUNTER 2016-07-16 21:59 | Inpatient (IN) | payer MEDICARE ==
[~2016-07-16] VITALS: Ht 167.6 cm; Wt 66.7 kg
[2016-07-16 21:30] VITALS: BP 123/59
[~2016-07-16 21:59] MED LIST changes: +BISA10SU61 RC; +FERR325T28 PO; +GUAI480S10 PO; +LORA-259 PO; +MAG355OR18 PO; +QUET100T PO; +QUET25TA PO; +ZINC113P2 TP
[2016-07-16] MEDS ORDERED: ACETAMINOPHEN 325 MG TABLET PO PRN (22:30)
[2016-07-16] MEDS ORDERED: MAGNESIUM HYDROXIDE 30 ML LIQUID UDC PO PRN (22:30)
[2016-07-16] MEDS ORDERED: MAG HYDROX/AL HYDROX/SIMETH 30 ML LIQUID UDC PO PRN (22:30)
[2016-07-17 07:30] VITALS: BP 169/84
[2016-07-17] MEDS ORDERED: NUT.237L70 PO (12:27)
[2016-07-17] MEDS ORDERED: PANT40TA2 PO (12:28)
[2016-07-17] MEDS ORDERED: SENN-22 PO (12:29)
[2016-07-17] MEDS ORDERED: NA P133E RC (12:30)
[2016-07-17 16:00] VITALS: BP 130/74
[2016-07-17] MEDS: LORAZEPAM 0.5 MG TABLET PO PRN ×2 (17:06→22:44)
[2016-07-17] MEDS: QUETIAPINE FUMARATE 25 MG TABLET PO SCH (18:10)
[2016-07-17 20:00] VITALS: BP 139/73
[2016-07-17] MEDS ORDERED: QUETIAPINE FUMARATE 100 MG TABLET PO SCH (21:00)
[2016-07-17] MEDS: ZOLPIDEM 5 MG TABLET PO PRN (21:17)
[2016-07-17] MEDS: DIVALPROEX SPRINKLE 125 MG CAP.SPRINK PO SCH (21:17)
[2016-07-17] MEDS ORDERED: BISACODYL 10 MG SUPP.RECT RC PRN (21:30)
[2016-07-17] MEDS ORDERED: MAG HYDROX/AL HYDROX/SIMETH 30 ML LIQUID UDC PO PRN (21:30)
[2016-07-17] MEDS: TAMSULOSIN HCL 0.4 MG CAP.SR.24H PO SCH (21:30)
[2016-07-17] MEDS ORDERED: FLEET ENEMA 133 ML BOTTLE RC PRN (21:30)
[2016-07-17] MEDS ORDERED: GUAIFENESIN/DEXTROMETHORPHAN 5 ML UDC PO PRN (21:30)
[2016-07-17] MEDS ORDERED: SENNOSIDES/DOCUSATE SODIUM TABLET PO PRN (21:30)
[2016-07-18] MEDS ORDERED: PANTOPRAZOLE SODIUM 40 MG TABLET.DR PO SCH (07:00)
[2016-07-18 07:30] VITALS: BP 128/69
[2016-07-18] MEDS: BOOST GLUCOSE CONTROL 237 ML LIQUID (VANILLA) PO SCH ×2 (08:00→17:49)
[2016-07-18] MEDS ORDERED: FERROUS SULFATE 325 MG TABEC PO SCH (09:00)
[2016-07-18] MEDS ORDERED: FINASTERIDE 5 MG TABLET PO SCH (09:00)
[2016-07-18] MEDS ORDERED: FERROUS SULFATE 300 MG/5 ML LIQUID UDC PO SCH (09:00)
[2016-07-18] MEDS ORDERED: [UNRECOGNIZED DRUG - OTHER] PO SCH (09:00)
[2016-07-18] MEDS ORDERED: GABAPENTIN 300 MG CAPSULE PO SCH (09:00)
[2016-07-18] MEDS: AMLODIPINE 5 MG TABLET PO SCH ×2 (10:06→20:33)
[2016-07-18] MEDS: DIVALPROEX SPRINKLE 125 MG CAP.SPRINK PO SCH ×2 (10:06→20:31)
[2016-07-18] MEDS: GABAPENTIN 100 MG CAPSULE PO SCH ×2 (10:07→20:32)
[2016-07-18] MEDS: QUETIAPINE FUMARATE 25 MG TABLET PO SCH ×2 (10:07→17:47)
[2016-07-18] MEDS: LORAZEPAM 0.5 MG TABLET PO PRN (10:07)
[2016-07-18 15:40] VITALS: BP 128/70
[2016-07-18 20:08] VITALS: BP 105/53
[2016-07-18] MEDS: TAMSULOSIN HCL 0.4 MG CAP.SR.24H PO SCH (20:31)
[2016-07-18 20:33] VITALS: BP 105/53
[2016-07-18 20:49] LABS: HEMATOCRIT 31.2 % (40.0-50.0); HEMOGLOBIN 9.7 g/dL (14.0-18.0); MEAN CORPUSCULAR HEMOGLOBIN 20.4 uug (27.0-31.0); MEAN CORPUSCULAR HGB CONC 31 g/dL (32.0-37.0); MEAN CORPUSCULAR VOLUME 65.7 fL (82.0-92.0); PLATELET COUNT (AUTO) 238 K/uL (150-450); RED BLOOD CELL COUNT(AUTO) 4.75 MIL/uL (4.70-6.10); WHITE BLOOD COUNT (AUTO) 18.7 K/uL (4.0-11.2)
[2016-07-18 20:51] LABS: CALCIUM 8.9 mg/dL (8.5-10.1)
[2016-07-18 20:53] LABS: CREATININE 1.7 mg/dL (0.6-1.3)
[2016-07-18] MEDS ORDERED: ATORVASTATIN 10 MG TABLET PO SCH (21:00)
[2016-07-18] MEDS ORDERED: QUETIAPINE FUMARATE 100 MG TABLET PO SCH (21:00)
[2016-07-18 21:30] LABS: BAND % (MANUAL) 6 % (0-10); HYPOCHROMASIA 2+; LYMPHOCYTES % (MANUAL) 10 % (20-40); MONOCYTES % (MANUAL) 10 % (2-10); NEUTROPHILS % (MANUAL) 74 % (42-75); PLATELET ESTIMATE ADEQUATE; TARGET CELLS 1+; TEAR DROP CELLS 2+
[2016-07-18] MEDS ORDERED: IV NS 1000 ML 1,000 ML IV PRN (21:45)
[2016-07-18] MEDS: ZOLPIDEM 5 MG TABLET PO PRN (22:56)
== END 2016-07-19 05:45 | disposition expired | DRG 885 ==
LOC: GPS 21:59
PROVIDERS: ADMIT Psychiatry & Neurology Psychiatry; ATTEND Internal Medicine
DX: F29 Unspecified psychosis not due to a substance or known physiological condition (principal); F02.81 Dementia in other diseases classified elsewhere, unspecified severity, with behavioral disturbance; I11.0 Hypertensive heart disease with heart failure; N17.0 Acute kidney failure with tubular necrosis; E11.65 Type 2 diabetes mellitus with hyperglycemia; D68.59 Other primary thrombophilia; E44.0 Moderate protein-calorie malnutrition; E87.0 Hyperosmolality and hypernatremia; G30.9 Alzheimer's disease, unspecified; D50.9 Iron deficiency anemia, unspecified; D56.3 Thalassemia minor; D69.6 Thrombocytopenia, unspecified; E78.5 Hyperlipidemia, unspecified; R33.9 Retention of urine, unspecified; Z90.49 Acquired absence of other specified parts of digestive tract; E80.6 Other disorders of bilirubin metabolism; N40.0 Benign prostatic hyperplasia without lower urinary tract symptoms; R31.9 Hematuria, unspecified; I50.9 Heart failure, unspecified; J84.10 Pulmonary fibrosis, unspecified
CPT/HCPCS: 36415; 85025; 92610; 97001; A4217; J7030